=== PATIENT | male | born 1990 | race Caucasian/White ===

== ENCOUNTER 2017-02-09 17:41 | Emergency (ER) | payer MEDICAID ==
[2017-02-09 18:03] VITALS: BP 146/91
[2017-02-09] MEDS ORDERED: PENICILLIN VK 250 MG TABLET PO STA (18:20)
--- NOTE | 2017-02-09 18:23 | ED Physician Documentation ---
History of Present Illness - Stated complaint Stated Complaint: MOUTH PX/FEVER - Chief complaint Chief Complaint: Heent - History obtained from History obtained from: Patient - History of Present Illness Timing: How many days ago (several) Pain level max: 6 Pain level now: 6 Improved by: nothing Worsened by: eating, drinking, smoking - Additonal information Additional information: Patient states that he has diffuse dental pain. States his gums feel like they are on fire. Has not seen a dentist. Recently moved back here from [facility]. No fevers. No vomiting. He does use cigarettes. Review of Systems Constitutional: denies: Fever GI: denies: Vomiting Skin: denies: Rash Musculoskeletal: denies: Neck pain, Back pain Neurologic: denies: Headache PD PAST MEDICAL HISTORY - Past Medical History Past Medical History: No - Past Surgical History Past Surgical History: No - Present Medications Home Medications: Ambulatory Orders Medication Instructions Recorded Confirmed Chlorhexidine Gluconate [Peridex] 15 ml PO BID #1 mouthwash 02/09/17 Penicillin V Potassium 500 mg PO Q6HR #40 tablet 02/09/17 - Allergies Allergies/Adverse Reactions: Allergies Allergy/AdvReac Type Severity Reaction Status Date / Time No Known Drug Allergies Allergy Verified 02/09/17 18:02 - Social History Does the pt smoke?: Yes Smoking Status: Current every day smoker Does the pt drink ETOH?: Yes Substance Use and Type: Marijuana - Immunizations Immunizations are current?: Yes PD ED PE NORMAL - Vitals Vital signs reviewed: Yes - General General: Alert and oriented X 3, No acute distress, Well developed/nourished - HEENT HEENT: Moist mucous membranes, Pharynx benign, Other (Generalized poor dentition. No ulcers on the gingiva, but there is mild diffuse inflammation of the gingiva. No drainable abscess. No trismus. Uvula is midline.) - Neck Neck: Supple, no meningeal sign, No adenopathy - Cardiac Cardiac: RRR, No murmur - Respiratory Respiratory: No respiratory distress, Clear bilaterally - Derm Derm: Warm and dry - Neuro Neuro: Alert and oriented X 3 Results - Vitals Vitals: Vital Signs - 24 hr 02/09/17 17:58 Temperature 37 C Heart Rate 84 Respiratory 15 Rate Blood Pressure 146/91 H O2 Saturation 96 Oxygen O2 Source Room air PD MEDICAL DECISION MAKING - ED course Complexity details: considered differential, d/w patient ED course: Patient is a 26-year-old male with diffuse gingivitis and dental caries. Will place on antibiotics and close follow-up with a dentist. Patient declines any pain medications here or for home. He is well-appearing, nontoxic. Afebrile. Patient counseled regarding signs and symptoms for which I believe and urgent re -evaluation would be necessary. Patient with good understanding of and agreement to plan and is comfortable going home at this time This document was made in part using voice recognition software. While efforts are made to proofread this document, sound alike and grammatical errors may occur. Departure - Departure Disposition: 01 Home, Self Care Clinical Impression: Pain due to dental caries Condition: Good Instructions: ED Tooth Pain Follow-Up: your,dentist SAUNDRA [Other] Prescriptions: Penicillin V Potassium 500 mg PO Q6HR #40 tablet Chlorhexidine Gluconate [Peridex] 15 ml PO BID #1 mouthwash Comments: Return if you worsen. You can also use salt water gargles at home and salt water rinses to help with the inflammation in your gums. Make sure to follow-up with your dentist as soon as possible, hopefully in the next week. Discharge Date/Time: 02/09/17 18:31
[2017-02-09] MEDS ORDERED: PENICILLIN VK 250 MG TABLET PO ONE (18:29)
== END 2017-02-09 18:31 | disposition home or self-care (01) ==
LOC: ED 17:41
DX: K05.10 Chronic gingivitis, plaque induced (principal); K02.9 Dental caries, unspecified; K08.89 Other specified disorders of teeth and supporting structures; F17.200 Nicotine dependence, unspecified, uncomplicated
CPT/HCPCS: 99283; A9270